=== PATIENT | male | born 1965 | race Caucasian/White ===

== ENCOUNTER 2024-07-14 14:11 | Emergency (ER) | payer OTHER ==
[~2024-07-14] VITALS: Ht 175.3 cm; Wt 80.0 kg
[2024-07-14 14:12] VITALS: TEMP 36.4; O2SAT 100
[2024-07-14] MEDS ORDERED: METH-653 MT (14:41)
[2024-07-14 15:34] VITALS: BP 162/110; PULSE 100; RESP 16
[2024-07-14] MEDS: IBUPROFEN 600MG TABLET PO ONE (15:34)
== END 2024-07-14 15:35 | disposition home or self-care (01) ==
LOC: ER 14:11
DX: M54.2 Cervicalgia (principal)
CPT/HCPCS: 99283